=== PATIENT | female | born 1995 ===

== ENCOUNTER 2017-03-16 23:09 | Observation (INO) | payer MEDICAID, OTHER ==
[2017-03-17 02:04] LABS: Urine Bilirubin Negative (Negative); Urine Blood Trace /uL (Negative); Urine Color Yellow (Yellow); Urine Glucose Normal (Normal); Urine Ketone Negative (Negative); Urine Urobilinogen Normal (Negative)
[2017-03-17 02:05] LABS: Urine Nitrite 1+ (Negative)
[2017-03-17 02:38] LABS: Urine RBC <1 /hpf (0 - 4); Urine Squamous Epithelial Cell FEW /hpf (<5)
== END 2017-03-17 01:10 | disposition home or self-care (01) | DRG 566 ==
LOC: LDRP 23:09
PROVIDERS: ADMIT Specialist; ATTEND Specialist
DX: O23.42 Unspecified infection of urinary tract in pregnancy, second trimester (principal); O26.892 Other specified pregnancy related conditions, second trimester; M54.9 Dorsalgia, unspecified; R10.13 Epigastric pain; Z3A.23 23 weeks gestation of pregnancy
CPT/HCPCS: 59025; 80307; 81001; 81002; 87086; G0378